=== PATIENT | female | born 1960 | race Caucasian/White ===

== ENCOUNTER → 2017-07-27 15:23 | Outpatient (CLI) | payer OTHER, SELFPAY ==
--- NOTE | 2017-07-27 | DI.MG.S_ITS ---
BILATERAL DIGITAL SCREENING MAMMOGRAM 3D/2D WITH CAD: 07/27/2017 CLINICAL: Routine screening. Comparison is made to exams dated: 07/21/2016 mammogram, 07/21/2015 mammogram, and 07/17/2014 mammogram - [facility]. The tissue of both breasts is heterogeneously dense. This may lower the sensitivity of mammography. Current study was also evaluated with a Computer Aided Detection (CAD) system. No significant masses, calcifications, or other findings are seen in either breast. There has been no significant interval change. IMPRESSION: NEGATIVE There is no mammographic evidence of malignancy. A 1 year screening mammogram is recommended. This exam was interpreted at Station ID: [id number]. NOTE: For mammograms, a report in lay terms will be sent to the patient. Approximately 15% of breast malignancies will not be visualized mammographically. In the management of a palpable breast mass, a negative mammogram must not discourage biopsy of a clinically suspicious lesion. Electronically Signed By: Adolfo hernandez/tommie:07/27/2017 15:49:57 letter sent: Normal Exam ACR BI-RADS Category 1: Negative 3341F
== END ==
PROVIDERS: PCP Physician Assistant; Visit Provider Physician Assistant
DX: Z12.31 Encounter for screening mammogram for malignant neoplasm of breast (principal)
CPT/HCPCS: 77063; 77067

== ENCOUNTER → 2018-01-16 09:56 | Outpatient (CLI) | payer OTHER, SELFPAY ==
[2018-01-16 10:50] LABS: Cholesterol 190 mg/dL (140-199); HDL Cholesterol 63 mg/dL (40-60); LDL Cholesterol Calculated 111 mg/dL (<100); Triglycerides 80 mg/dL (35-150)
== END ==
PROVIDERS: PCP Physician Assistant; Visit Provider Physician Assistant
DX: I73.00 Raynaud's syndrome without gangrene (principal); R00.1 Bradycardia, unspecified; Z82.49 Family history of ischemic heart disease and other diseases of the circulatory system
CPT/HCPCS: 36415; 80061

== ENCOUNTER → 2018-08-13 14:00 | Outpatient (CLI) | payer OTHER, SELFPAY ==
--- NOTE | 2018-08-13 | DI.MG.S_ITS ---
BILATERAL DIGITAL SCREENING MAMMOGRAM 3D/2D WITH CAD: 08/13/2018 CLINICAL: Routine screening. Comparison is made to exams dated: 07/27/2017 mammogram, 07/21/2016 mammogram, and 07/21/2015 mammogram - [facility]. The tissue of both breasts is heterogeneously dense. This may lower the sensitivity of mammography. Current study was also evaluated with a Computer Aided Detection (CAD) system. No significant masses, calcifications, or other findings are seen in either breast. There has been no significant interval change. IMPRESSION: NEGATIVE There is no mammographic evidence of malignancy. A 1 year screening mammogram is recommended. This exam was interpreted at Station ID: [id number]. NOTE: For mammograms, a report in lay terms will be sent to the patient. Approximately 15% of breast malignancies will not be visualized mammographically. In the management of a palpable breast mass, a negative mammogram must not discourage biopsy of a clinically suspicious lesion. Electronically Signed By: Olaf disla/tommie:08/13/2018 16:40:21 letter sent: Normal Exam ACR BI-RADS Category 1: Negative 3341F
== END ==
PROVIDERS: PCP Physician Assistant; Visit Provider Physician Assistant
DX: Z12.31 Encounter for screening mammogram for malignant neoplasm of breast (principal)
CPT/HCPCS: 77063; 77067

== ENCOUNTER → 2019-07-28 10:28 | Outpatient (CLI) | payer OTHER, SELFPAY ==
--- NOTE | 2019-07-28 10:30 | DI.MG.S_ITS ---
BILATERAL DIGITAL SCREENING MAMMOGRAM 3D/2D WITH CAD: 07/28/2019 CLINICAL: Routine screening. Comparison is made to exams dated: 08/13/2018 mammogram, 07/27/2017 mammogram, 07/21/2016 mammogram, 07/21/2015 mammogram, 07/17/2014 mammogram, and 06/14/2011 mammogram - [facility]. The tissue of both breasts is heterogeneously dense. This may lower the sensitivity of mammography. Current study was also evaluated with a Computer Aided Detection (CAD) system. No significant masses, calcifications, or other findings are seen in either breast. There has been no significant interval change. IMPRESSION: NEGATIVE There is no mammographic evidence of malignancy. A 1 year screening mammogram is recommended. This exam was interpreted at Station ID: [id number]. NOTE: For mammograms, a report in lay terms will be sent to the patient. Approximately 15% of breast malignancies will not be visualized mammographically. In the management of a palpable breast mass, a negative mammogram must not discourage biopsy of a clinically suspicious lesion. Electronically Signed By: Darrel moser/tommie:07/28/2019 11:06:02 letter sent: Normal Exam ACR BI-RADS Category 1: Negative 3341F
== END ==
PROVIDERS: PCP Nurse Practitioner Family; Referring Provider Nurse Practitioner Family; Visit Provider Nurse Practitioner Family
DX: Z12.31 Encounter for screening mammogram for malignant neoplasm of breast (principal)
CPT/HCPCS: 77063; 77067

== ENCOUNTER 2019-10-12 09:33 | Emergency (ER) | payer OTHER, SELFPAY ==
[2019-10-12 09:46] VITALS: BP 124/59; PULSE 57; O2SAT 98
[2019-10-12 09:47] VITALS: BP 124/59; PULSE 58; RESP 16; TEMP 36.9; O2SAT 97; BMI 26.6
--- NOTE | 2019-10-12 09:54 | DI.CT.S_ITS ---
PROCEDURE: CT ABDOMEN PELVIS W CON INDICATIONS: ab fullness ongoing TECHNIQUE: After the administration of intravenous contrast, 5 mm thick sections acquired from the diaphragm to the symphysis. 5 mm coronal and sagittal reformats were acquired. For radiation dose reduction, the following was used: automated exposure control, adjustment of mA and/or kV according to patient size. COMPARISON: None. FINDINGS: Image quality: Excellent. ABDOMEN: Lung bases: Lung bases are clear. Heart size is normal. Solid organs: Liver is normal in size and enhancement. The left lobe of the liver is seen projecting to the left side and goes superior to the spleen. Gallbladder wall is not thickened. Biliary system is non dilated. Pancreas enhances normally. Spleen is normal in size and enhancement. No adrenal nodules. Kidneys demonstrate normal size and enhancement, without hydronephrosis. Peritoneum and bowel: There is generalized mild thickening of the colonic wall, with surrounding inflammatory change, particularly involving the cecum and the ascending colon. No dilated loops of small bowel are seen. No free air or significant free fluid can be seen. Nodes and vessels: No retroperitoneal or mesenteric adenopathy by size criteria. Aorta and inferior vena cava are normal in size. Miscellaneous: No ventral hernias. PELVIS: Genitourinary: Bladder wall thickness is normal. Presumed prior hysterectomy. No adnexal masses are seen. Miscellaneous: No inguinal hernias or adenopathy. Bones: No suspicious bony lesions. No vertebral body compression fractures. Mild dextroconvex scoliotic curvature is seen. Age-appropriate bony degenerative changes are seen, which are worst at L5-S1. IMPRESSION: Generalized colitis, particularly proximally. Please correlate with potential infectious and inflammatory causes of colitis. Ischemia is possible, yet considered to be less likely. No findings of perforation or abscess are seen. Incidental note is made of: Elongated left lobe of the liver Dextroconvex scoliotic curvature Hysterectomy Focal L5-S1 degenerative change Dictated by: Helio Caldwell M.D. on 10/12/2019 at 9:40 Approved by: Helio Caldwell M.D. on 10/12/2019 at 9:44
[2019-10-12 09:55] LABS: Add Manual Diff / Slide Review NO; Basophils Absolute Auto 100 /uL (0-100); Eosinophils Absolute Auto 100 /uL (0-450); Eosinophils Percent Auto 1.6 % (2-4); Hematocrit 40.7 % (36-46); Hemoglobin 13.6 g/dL (12.0-16.0); Lymphocytes Absolute Auto 1500 /uL (1100-4500); Lymphocytes Percent Auto 27.3 % (25-40); Mean Corpuscular HGB Conc 33.4 % (30-36); Mean Corpuscular Hemoglobin 29.9 PG (26-34); Mean Corpuscular Volume 89.6 fL (80-100); Monocytes Absolute Auto 400 /uL (0-900); Monocytes Percent Auto 6.4 % (3-14); Neutrophils Absolute Auto 3600 /uL (1500-7000); Neutrophils Percent Auto 63.7 % (50-75); Platelet Count 221 X10^3/uL (150-400); Red Blood Cell Count 4.54 X10^6/uL (4.0-5.2); Red Cell Distribution Width 12.9 % (11.6-14.8); White Blood Cell Count 5.6 X10^3/uL (4.5-11.0)
--- NOTE | 2019-10-12 09:56 | ED.ABDPAIN ---
HPI - Abdominal Pain General Chief Complaint: Abdominal Pain Stated Complaint: discomfort in belly, sent by [facility] Time Seen by Provider: 10/12/19 09:47 Source: patient Mode of arrival: Ambulatory Limitations: no limitations History of Present Illness HPI narrative: Patient is a 58-year-old female who presents with the abdominal discomfort ongoing for about the past 10 days. She states that she feels that her abdomen is full and that her pants are fitting differently. She feels distant aching discomfort diffusely. She has a decrease in appetite she denies any nausea or vomiting. She states that her bowel movements are normal. However pants that fit 2 weeks ago are now just fitting differently and she has not been eating much. MD complaint: abdominal pain Onset (ago): day(s) () Pain Consistency: intermittent Location: diffuse Severity: mild Quality: cramping and fullness Radiation: none Migration to: no migration Relieving factors: nothing Exacerbating factors: nothing Related Data Home Medications Medication Instructions Recorded Confirmed [MULTIVITAMIN] 1 tab PO QDAY #0 08/05/10 09/09/18 [VITAMIN C] 500 mg PO QDAY #0 08/05/10 09/09/18 [VITAMIN D] 1 tab PO QDAY #0 08/21/16 09/09/18 Previous Rx's Medication Instructions Recorded EPINEPHRINE (ADRENACLICK) 0.3 mg SUBCUT ONCE #2 ea 09/04/17 varicella-zoster [id number] (PF) 50 50 mcg IM ONCE #1 each 09/09/18 mcg/0.5 mL IM susp, kit bupropion HCl 100 mg tablet,12 hr 100 mg PO Q DAY #90 tab 10/01/18 sustained-release sertraline 50 mg tablet 50 mg PO Q DAY #90 tab 10/01/18 ciprofloxacin HCl [Cipro] 500 mg PO BID #14 tab 10/12/19 metronidazole [Flagyl] 500 mg PO Q8H #21 tab 10/12/19 Allergies Allergy/AdvReac Type Severity Reaction Status Date / Time Penicillins [PENICILLINS] Allergy Severe rash Unverified 09/09/18 11:10 venom-wasp [WASP VENOM] Allergy Severe FACIAL Unverified 09/09/18 11:10 SWELLING & ANAPHYLACTIC SHOCK codeine [CODEINE] AdvReac Severe n/v Unverified 09/09/18 11:10 Sulfa (Sulfonamide AdvReac Severe passed out Unverified 09/09/18 11:10 Antibiotics) due to low [SULFA (SULFONAMIDE bp ANTIBIOTICS)] Review of Systems Review of Systems Narrative: GENERAL: Denies chills, fatigue, malaise, fever, sweats, travel HEENT: Denies sinus pain, ear pain, sore throat, difficulty swallowing, neck pain RESPIRATORY: Denies dyspnea, cough, wheezing, hemoptysis, sputum. CARDIOVASCULAR: Denies chest pain, palpitations, orthopnea, edema GASTROINTESTINAL: See HPI : Denies dysuria, frequency, incontinence, hematuria, urinary retention, flank pain. MUSCULOSKELETAL: Denies weakness, joint pain, or bony pain SKIN: No rash, no erythema, no pruritus NEUROLOGIC: Denies weakness, dizziness, headache, numbness, change in speech, confusion PSYCHIATRIC: No concerning psychosocial issues. 12 point review of systems is negative except for those stated above and HPI Patient History Medical History Allergic rhinitis (Chronic Unknown) Depression (Chronic Unknown) Low back pain (Chronic ~1999) Raynaud disease (Chronic Unknown) Surgical History Hx of sinus surgery (Resolved Unknown) Status post delivery Status post hysterectomy with oophorectomy Family History Father Hypertension Mother Diabetes mellitus Grandfather No problems noted. Social History Smoking Status: Former smoker Tobacco: How many years used: 4 second hand exposure: No alcohol intake: current (a glass of wine a couple of times a year.) substance use type: does not use Smoking Status: Former smoker Substance Use Type: does not use Exam Initial Vital Signs Initial Vital Signs: Vital Signs Pulse Rate 57 L 10/12/19 09:46 Blood Pressure 124/59 L 10/12/19 09:46 Pulse Oximetry 98 10/12/19 09:46 GENERAL: Well-appearing, well-nourished and in no acute distress. HEENT: Head atraumatic,EOMI, pupils reactive, face symmetric, moist mucous membranes CARDIOVASCULAR: Regular rate and rhythm without murmurs, rubs or gallops. RESPIRATORY: Breath sounds equal bilaterally, no wheezes rales or rhonchi. ABDOMEN: Soft, mild diffuse tenderness no localization no guarding no rebound negative Weathers sign : No CVA tenderness EXTREMITIES: Normal range of motion, no clubbing or edema. Neurovascularly intact NEUROLOGICAL: Alert and oriented x4.Normal gait and speech. SKIN: Warm, dry, no laceration, no petechiae, no rashes or lesions. Course Orders Ordered: ED Orders 10/12/19 09:45 Complete Blood Count AUTO DIFF Stat Comprehensive Metabolic Panel Stat Lipase Stat Partial Thromboplastin Time Stat Prothrombin Time INR Stat 10/12/19 09:54 CT abdomen pelvis w con Stat Vital Signs Vital signs: Vital Signs - 8 hr 10/12/19 09:46 10/12/19 09:47 10/12/19 10:00 Temperature 98.5 F Pulse Rate 57 L 58 L 54 L Respiratory Rate 16 7 L Blood Pressure 124/59 L 124/59 L 114/57 L Pulse Oximetry 98 97 10/12/19 11:02 Temperature Pulse Rate 59 L Respiratory Rate 16 Blood Pressure 114/57 L Pulse Oximetry 97 MDM - Abdominal Pain Lab Data Attestation: I reviewed the patient's lab results. Result diagrams: 10/12/19 09:45 10/12/19 09:45 Labs: Lab Results 10/12/19 10/12/19 10/12/19 Range/Units 09:45 09:45 09:45 WBC 5.6 (4.5-11.0) X10^3/uL RBC 4.54 (4.0-5.2) X10^6/uL Hgb 13.6 (12.0-16.0) g/dL Hct 40.7 (36-46) % MCV 89.6 (80-100) fL MCH 29.9 (26-34) PG MCHC 33.4 (30-36) % RDW 12.9 (11.6-14.8) % Plt Count 221 (150-400) X10^3/uL Neut % (Auto) 63.7 (50-75) % Lymph % (Auto) 27.3 (25-40) % Meeker % (Auto) 6.4 (3-14) % Eos % (Auto) 1.6 L (2-4) % Baso % (Auto) 1.0 (0-2) % Neut # (Auto) 3600 (8591-7983) /uL Lymph # (Auto) 1500 (7007-1348) /uL Meeker # (Auto) 400 (0-900) /uL Eos # (Auto) 100 (0-450) /uL Baso # (Auto) 100 (0-100) /uL PT 11.4 (10.1-12.7) SECONDS INR 1.0 (0.9-1.3) APTT 35 (26.4-36.2) SECONDS Sodium 137 (137-145) mmol/L Potassium 3.8 (3.4-5.1) mmol/L Chloride 104 (98-107) mmol/L Carbon Dioxide 30 (22-32) mmol/L BUN 18 H (7-17) mg/dL Creatinine 0.97 (0.52-1.04) mg/dL Estimated GFR 58.6 L (>60) mL/min BUN/Creatinine Ratio 18.6 (6-22) Glucose 92 (80-110) mg/dL Calcium 9.4 (8.4-10.2) mg/dL Total Bilirubin 1.6 H (0.2-1.3) mg/dL AST 36 (14-36) IU/L ALT 19 (<35) IU/L Alkaline Phosphatase 66 (38-126) U/L Total Protein 7.2 (6.3-8.2) g/dL Albumin 4.1 (3.5-5.0) g/dL Globulin 3.1 (1.7-4.1) g/dL Albumin/Globulin Ratio 1.3 (1.0-2.8) Lipase 43 (23-300) U/L Imaging Data CT scan - abdomen/pelvis: Radiologist's Impression: PROCEDURE: CT ABDOMEN PELVIS W CON INDICATIONS: ab fullness ongoing TECHNIQUE: After the administration of intravenous contrast, 5 mm thick sections acquired from the diaphragm to the symphysis. 5 mm coronal and sagittal reformats were acquired. For radiation dose reduction, the following was used: automated exposure control, adjustment of mA and/or kV according to patient size. COMPARISON: None. FINDINGS: Image quality: Excellent. ABDOMEN: Lung bases: Lung bases are clear. Heart size is normal. Solid organs: Liver is normal in size and enhancement. The left lobe of the liver is seen projecting to the left side and goes superior to the spleen. Gallbladder wall is not thickened. Biliary system is non dilated. Pancreas enhances normally. Spleen is normal in size and enhancement. No adrenal nodules. Kidneys demonstrate normal size and enhancement, without hydronephrosis. Peritoneum and bowel: There is generalized mild thickening of the colonic wall, with surrounding inflammatory change, particularly involving the cecum and the ascending colon. No dilated loops of small bowel are seen. No free air or significant free fluid can be seen. Nodes and vessels: No retroperitoneal or mesenteric adenopathy by size criteria. Aorta and inferior vena cava are normal in size. Miscellaneous: No ventral hernias. PELVIS: Genitourinary: Bladder wall thickness is normal. Presumed prior hysterectomy. No adnexal masses are seen. Miscellaneous: No inguinal hernias or adenopathy. Bones: No suspicious bony lesions. No vertebral body compression fractures. Mild dextroconvex scoliotic curvature is seen. Age-appropriate bony degenerative changes are seen, which are worst at L5-S1. IMPRESSION: Generalized colitis, particularly proximally. Please correlate with potential infectious and inflammatory causes of colitis. Ischemia is possible, yet considered to be less likely. No findings of perforation or abscess are seen. Incidental note is made of: Elongated left lobe of the liver Dextroconvex scoliotic curvature Hysterectomy Focal L5-S1 degenerative change Dictated by: Helio Caldwell M.D. on 10/12/2019 at 9:40 Approved by: Helio Caldwell M.D. on 10/12/2019 at 9:44 MDM Narrative Medical decision making narrative: The patient does not have leukocytosis or fever but CT does show colitis. Symptoms have been ongoing for the last 10 days will start antibiotics to see if it improves her symptoms Discharge Plan Departure Patient Disposition: Home Clinical Impression: Colitis Discharge Date/Time: 10/12/19 11:02 Instructions: DI for Colitis Activity Restrictions/Additional Instructions: *You have been diagnosed with colitis *What to do: Blood work is overall reassuring however I do recommend antibiotics for infection in your intestine. Try to stay hydrated and drink fluids if you feel like eating you may advance her diet as tolerated *Continue to take medications as directed-->SENT TO [facility] Cipro 500 mg twice a day for 7 day Flagyl 500 mg 3 times a day for 7 days *Follow up with your primary care provider in 2-3 days *Return to ER if you should have increased pain fever or any new, worsening or concerning symptoms Prescriptions: New ciprofloxacin HCl [Cipro] 500 mg tablet 500 mg PO BID Qty: 14 RF: 0 metronidazole [Flagyl] 500 mg tablet 500 mg PO Q8H Qty: 21 RF: 0 No Action EPINEPHRINE (ADRENACLICK) 0.3 mg SUBCUT ONCE Qty: 2 RF: 1 [MULTIVITAMIN] 1 tab PO QDAY Qty: 0 RF: 0 [VITAMIN C] 500 mg PO QDAY Qty: 0 RF: 0 [VITAMIN D] 1 tab PO QDAY Qty: 0 RF: 0 sertraline [Zoloft] 50 mg tablet 50 mg PO Q DAY Qty: 90 RF: 3 bupropion HCl [Wellbutrin SR] 100 mg tablet sustained-release 12 hr 100 mg PO Q DAY Qty: 90 RF: 3 Shingrix (PF) 50 mcg/0.5 mL suspension for reconstitution 50 mcg IM ONCE Qty: 1 RF: 1 Referrals: Shaunna Paula ARNP [Primary Care Provider] -
[2019-10-12 10:00] VITALS: BP 114/57; PULSE 54; RESP 7
[2019-10-12 10:03] LABS: Prothrombin Time 11.4 SECONDS (10.1-12.7)
[2019-10-12 10:05] LABS: PTT Partial Thromboplastin Tim 35 SECONDS (26.4-36.2)
[2019-10-12 10:07] LABS: Alanine Aminotransferase 19 IU/L (<35); Albumin 4.1 g/dL (3.5-5.0); Albumin Globulin Ratio 1.3 (1.0-2.8); Alkaline Phosphatase 66 U/L (38-126); Aspartate Aminotransferase 36 IU/L (14-36); BUN Creatinine Ratio 18.6 (6-22); Bilirubin Total 1.6 mg/dL (0.2-1.3); Blood Urea Nitrogen 18 mg/dL (7-17); Calcium 9.4 mg/dL (8.4-10.2); Carbon Dioxide 30 mmol/L (22-32); Chloride 104 mmol/L (98-107); Estimated Glomerular Filt Rate 58.6 mL/min (>60); Globulin 3.1 g/dL (1.7-4.1); Glucose 92 mg/dL (80-110); HEMOLYSIS 17 (0-50); Lipase 43 U/L (23-300); Potassium 3.8 mmol/L (3.4-5.1); Sodium 137 mmol/L (137-145); Total Protein 7.2 g/dL (6.3-8.2)
[2019-10-12 11:02] VITALS: BP 114/57; PULSE 59; RESP 16; O2SAT 97
== END 2019-10-12 11:02 | disposition home or self-care (01) ==
PROVIDERS: Emergency Provider Emergency Medicine; PCP Nurse Practitioner Family
DX: K52.9 Noninfective gastroenteritis and colitis, unspecified (principal)
CPT/HCPCS: 36415; 74177; 80053; 83690; 85025; 85610; 85730; 99283; 99284; Q9967

== ENCOUNTER → 2020-02-23 09:12 | Outpatient (CLI) | payer OTHER, SELFPAY ==
[2020-02-23 11:34] LABS: COVID19 -Nasal RAPID Negative (Negative)
== END ==
PROVIDERS: PCP Nurse Practitioner Family; Visit Provider Specialist
DX: Z01.812 Encounter for preprocedural laboratory examination (principal); Z20.828 Contact with and (suspected) exposure to other viral communicable diseases
CPT/HCPCS: 87635; C9803

== ENCOUNTER 2020-02-24 07:59 | Day surgery (SDC) | payer OTHER, SELFPAY ==
[2020-02-24] VITALS (7 sets, daily range): BP systolic 110–116; BP diastolic 54–86; PULSE 61–71; RESP 8–18; TEMP 36.7–37.1; O2SAT 94–100; BMI 27.3
[2020-02-24] MEDS: LACTATED RINGERS 1,000 ML 200 ML IV (08:31)
--- NOTE | 2020-02-24 10:25 | PM.HP.1 ---
History of Present Illness History of Present Illness Date Patient Seen: 02/24/20 Time Patient Seen: 10:20 Chief complaint: SD Narrative: Patient here for screening examination. Last exam 11 years ago. No history polyps or of colon cancer in the family. She does have a history of diverticulitis several months ago. Patient History Medical History Allergic rhinitis (Unknown) Depression (Unknown) Diverticulosis (08/2019) Low back pain (~1999) Raynaud disease (Unknown) Surgical History Hx of sinus surgery (Unknown) Status post delivery Status post hysterectomy with oophorectomy Family & Social History Family History Father Hypertension Mother Diabetes mellitus Grandfather No problems noted. Social History: household members family Tobacco & Substance use: Smoking Status Former smoker alcohol intake current alcohol intake frequency holiday/special occasion Substance Use Type does not use Meds Home Medications and Allergies Home Medications Medication Instructions Recorded Confirmed Type [MULTIVITAMIN] 1 tab PO QDAY #0 08/05/10 02/24/20 History [VITAMIN C] 500 mg PO QDAY #0 08/05/10 02/24/20 History [VITAMIN D] 1 tab PO QDAY #0 08/21/16 02/24/20 History EPINEPHRINE (ADRENACLICK) 0.3 mg SUBCUT ONCE #2 ea 09/04/17 01/06/20 Rx bupropion HCl 100 mg tablet,12 hr 100 mg PO Q DAY #30 tab 11/28/19 02/24/20 Rx sustained-release sertraline 50 mg tablet 50 mg PO Q DAY #30 tab 11/28/19 02/24/20 Rx Allergies Allergy/AdvReac Type Severity Reaction Status Date / Time Penicillins [PENICILLINS] Allergy Severe rash Verified 02/24/20 08:31 venom-wasp [WASP VENOM] Allergy Severe FACIAL Verified 02/24/20 08:31 SWELLING & ANAPHYLACTIC SHOCK codeine [CODEINE] AdvReac Severe n/v Verified 02/24/20 08:31 Sulfa (Sulfonamide AdvReac Severe passed out Verified 02/24/20 08:16 Antibiotics) due to low [SULFA (SULFONAMIDE bp ANTIBIOTICS)] Review of Systems Review of Systems Narrative: History of asthma years ago. No longer treated for it. ROS: Yes All systems reviewed with the patient and are negative except as otherwise documented Exam Vital Signs (past 8 hours): - 02/24/20 08:19 Temperature 98.3 F Pulse Rate 61 Respiratory Rate 16 Blood Pressure 110/63 Pulse Oximetry 100 Oxygen Delivery Method Room Air Narrative Exam Narrative: Pleasant cooperative patient no apparent distress. Lungs are clear to auscultation. No rales or rhonchi. Heart regular rate and rhythm no murmur gallop. Abdomen is soft nontender without mass. No obvious hernias. Patient is alert and oriented x3. Assessment & Plan Assessment & Plan narrative: The patient for a screening colonoscopy. I have discussed the procedure with them. Risks of bleeding, perforation which would necessitate major operation, failure to find remove all lesions, the potential tattoo were all discussed. All questions were answered. They wished to proceed.
--- NOTE | 2020-02-24 10:27 | PM.PREOP ---
Pre-operative Note COVID-19 COVID-19 status: Negative Result date/Date tested (Pos, Neg/Pending): 02/23/20 Interval Note History & Physical reviewed/Exam performed by Physician: Yes Changes to H&P: No ASA Class (for procedural sedation): I
[2020-02-24] MEDS: ONDANSETRON 4 MG/2 ML INJ IV (10:30)
[2020-02-24] MEDS: fentaNYL 250 MCG/5 ML INJ IV (10:50)
[2020-02-24] MEDS: MIDAZOLAM 5 MG/5 ML VIAL IV (10:50)
--- NOTE | 2020-02-24 11:17 | PM.OP.ENDO ---
Operative Date/Time/Diagnoses Date of procedure: 02/24/20 Time of procedure: 11:18 Pre-op diagnosis: Screening exam. Post-op diagnosis: same Procedure & Clinicians Study performed: Attempted colonoscopy. Abandoned in the area of the hepatic flexure. Same procedure as scheduled: Yes Indications: Screening. Last exam 11 years ago. Surgeon: Inocencio Bynum Procedure Notes SCOAP/Timeout: Performed Procedure in detail: The patient was placed in the left lateral decubitus position and underwent IV sedation directed by the surgeon consisting of fentanyl and Versed. Digital exam was unremarkable. The scope was inserted and advanced through the rectum into the sigmoid, descending, and the transverse colon. To get this far was quite difficult. The patient had to be repositioned pressure applied but still I could not get beyond what appeared to be the hepatic flexure region. The patient had a very tortuous colon. I did not see diverticuli in her sigmoid colon despite her history of being treated for diverticulitis. The scope was gradually brought out. No Polyps were found. The scope ultimately was retroflexed in the rectum. The appearance was normal. The scope was removed and the patient tolerated the procedure well. The prep was very good. Scope withdrawal time: Not applicable Sedation minutes: 32 Specimen(s): none sent Complications: none Post-procedure Recommendations: Other recommendation (Barium enema to evaluate the remainder of her colon.) Follow up: as needed (After barium enema) Disposition: PACU
--- NOTE | 2020-02-24 11:45 | SUR.PHASEII ---
All discharge paperwork provided to patient . Advised patient that due to incompletion of colonoscopy, patient would need to have barium enema scheduled by Dr Bynum's office.
== END 2020-02-24 11:54 | disposition home or self-care (01) ==
PROVIDERS: PCP Nurse Practitioner Family; Referring Provider Nurse Practitioner Family; Visit Provider Specialist
PROC: 0DJD8ZZ Inspection of Lower Intestinal Tract, Via Natural or Artificial Opening Endoscopic (ICD-10-PCS; CPT 45378; principal; 2020-02-24 09:15)
DX: Z12.11 Encounter for screening for malignant neoplasm of colon (principal); Z87.19 Personal history of other diseases of the digestive system; Z53.09 Procedure and treatment not carried out because of other contraindication
CPT/HCPCS: 45378; 99152; 99153; J2250; J2405; J3010

== ENCOUNTER 2020-02-25 10:30 | Emergency (ER) | payer OTHER, SELFPAY ==
[2020-02-25] VITALS (9 sets, daily range): BP systolic 122–137; BP diastolic 59–65; PULSE 60–68; RESP 15–16; TEMP 37.2; O2SAT 97–100; BMI 28.1
--- NOTE | 2020-02-25 10:36 | DI.CT.S_ITS ---
PROCEDURE: CT HEAD/BRAIN WO CON INDICATIONS: severe headache with nausea TECHNIQUE: Noncontrast 4.5 mm thick angled axial sections acquired from the foramen magnum to the vertex, with coronal and sagittal reformats. For radiation dose reduction, the following was used: automated exposure control, adjustment of mA and/or kV according to patient size. COMPARISON: None. FINDINGS: Image quality: Excellent. CSF spaces: Basal cisterns are patent. No extra-axial fluid collections. Ventricles are normal in size and shape. Note is made of empty sella. Brain: No midline shift. No intracranial masses or hemorrhage. Jason-white matter interface is normal. There is calcification in the pineal gland area. Skull and face: Calvarium and visualized facial bones are intact, without suspicious lesions. Sinuses: Visualized sinuses and mastoids are clear. IMPRESSION: 1. No acute intracranial abnormalities. 2. Calcification in the pineal gland area, which may be age related change but a calcified mass cannot be excluded. If clinically indicated, follow-up MRI may be helpful. 3. Empty sella, probably a normal variant. Dictated by: Melvina Maldonado M.D. on 02/25/2020 at 11:18 Approved by: Melvina Maldonado M.D. on 02/25/2020 at 11:33
--- NOTE | 2020-02-25 10:38 | ED.NAVMDI ---
HPI - Nausea/Vomiting/Diarrhea General Chief complaint: Nausea/Vomiting/Diarrhea Stated complaint: Vertigo/Vomiting Time Seen by Provider: 02/25/20 10:36 Source: patient and EMS Mode of arrival: EMS Limitations: no limitations History of Present Illness HPI Narrative: Patient is a 59-year-old female who had a colonoscopy yesterday as a routine. Presenting today with headache and nausea. She is not sure what came 1st but she is extremely nauseous and has a severe headache cannot stop throwing up. She denies any dizziness lightheadedness chest pain weakness numbness or tingling. She says she does not normally get headaches. She is not on any anti-platelet or anticoagulation medication MD complaint: nausea and vomiting Related Data Home Medications Medication Instructions Recorded Confirmed [MULTIVITAMIN] 1 tab PO QDAY #0 08/05/10 02/24/20 [VITAMIN C] 500 mg PO QDAY #0 08/05/10 02/24/20 [VITAMIN D] 1 tab PO QDAY #0 08/21/16 02/24/20 Previous Rx's Medication Instructions Recorded EPINEPHRINE (ADRENACLICK) 0.3 mg SUBCUT ONCE #2 ea 09/04/17 bupropion HCl 100 mg tablet,12 hr 100 mg PO Q DAY #30 tab 11/28/19 sustained-release sertraline 50 mg tablet 50 mg PO Q DAY #30 tab 11/28/19 ondansetron 4 mg PO Q8H PRN #10 tab 02/25/20 Allergies Allergy/AdvReac Type Severity Reaction Status Date / Time Penicillins [PENICILLINS] Allergy Severe rash Verified 02/25/20 10:37 venom-wasp [WASP VENOM] Allergy Severe FACIAL Verified 02/25/20 10:37 SWELLING & ANAPHYLACTIC SHOCK codeine [CODEINE] AdvReac Severe n/v Verified 02/25/20 10:37 Sulfa (Sulfonamide AdvReac Severe passed out Verified 02/25/20 10:37 Antibiotics) due to low [SULFA (SULFONAMIDE bp ANTIBIOTICS)] Review of Systems Review of Systems ROS Unobtainable: All systems reviewed & are unremarkable except as noted in HPI and below Constitutional Constitutional: Denies chills, Denies fever(s), Reports headache(s), Denies lethargy and Denies weakness ENT Ears, Nose, Mouth, and Throat: Reports headache(s) Cardiovascular Cardiovascular: Denies chest pain, Denies irregular heart rhythm, Denies lightheadedness, Denies palpitations, Denies dyspnea, Denies dyspnea on exertion and Denies orthopnea Respiratory Respiratory: Denies cough, Denies dyspnea, Denies dyspnea on exertion and Denies wheezing Gastrointestinal Gastrointestinal: Denies abdominal pain, Denies change in bowel habits, Denies diarrhea, Reports nausea and Reports vomiting Musculoskeletal Musculoskeletal: Denies back pain and Denies deformity Integumentary/Breasts Skin/Breast: Denies pruritus, Denies erythema, Denies rash and Denies wounds Neurologic Neurologic: Reports headache(s) and Denies weakness Endocrine Endocrine: Denies palpitations Allergic/Immunologic Allergic/Immunologic: Denies wheezing Patient History Medical History Allergic rhinitis (Unknown) Depression (Unknown) Diverticulosis (08/2019) Low back pain (~1999) Raynaud disease (Unknown) Surgical History Hx of sinus surgery (Unknown) Status post delivery Status post hysterectomy with oophorectomy Family History Father Hypertension Mother Diabetes mellitus Grandfather No problems noted. Social History household members: family Smoking Status: Former smoker Tobacco: How many years used: 4 second hand exposure: No alcohol intake: current substance use type: does not use Smoking Status: Former smoker alcohol intake frequency: holidays/special occasions only Substance Use Type: does not use Exam Initial Vital Signs Initial Vital Signs: Vital Signs Temperature 98.9 F 02/25/20 10:34 Pulse Rate 67 02/25/20 10:34 Respiratory Rate 15 02/25/20 10:34 Blood Pressure 128/64 02/25/20 10:34 Pulse Oximetry 99 02/25/20 10:34 GENERAL: Well-appearing, well-nourished and in no acute distress. HEENT: Head atraumatic,EOMI, pupils reactive, face symmetric, moist mucous membranes CARDIOVASCULAR: Regular rate and rhythm without murmurs, rubs or gallops. RESPIRATORY: Breath sounds equal bilaterally, no wheezes rales or rhonchi. ABDOMEN: Soft, nontender. Normoactive bowel sounds all 4 quadrants. No guarding or rebound. EXTREMITIES: Normal range of motion, no clubbing or edema. Neurovascularly intact NEUROLOGICAL: Alert and oriented x4.Normal gait and speech. Cranial nerves II through XII grossly intact. Good cqcqfp-[id number], good [id number], strength equal bilaterally, no dysarthria or aphasia, sensation in tact to soft touch bilaterally, no visual changes, no facial droop SKIN: Warm, dry, no laceration, no petechiae, no rashes or lesions. Scores NIH Stroke Scale Level of Conciousness: Alert, keenly responsive Ask month/age: Answers both questions correctly. Open/close eyes, close hand: Performs both tasks correctly Best gaze horizontal: Normal Visual erickson: No visual loss Facial palsy: Normal symetrical movement Left arm drift: No drift for full 10 sec Right arm drift: No drift for full 10 sec Left leg drift: No drift for full 5 sec Right leg drift: No drift for full 5 sec Limb ataxia: Absent Sensory on face/arms/legs: Normal, no sensory loss Best language: No aphasia, normal Dysarthria: Normal Extinction or inattention: No abnormality Total NIH Stroke scale score: 0 Course Orders Ordered: ED Orders 02/25/20 10:30 Complete Blood Count AUTO DIFF Stat Comprehensive Metabolic Panel Stat Lipase Stat Partial Thromboplastin Time Stat Prothrombin Time INR Stat Troponin & CK Cardiac Panel Stat 02/25/20 10:35 EKG-12 Lead Stat 02/25/20 10:36 CT head/brain wo con Stat Discontinued Medications Sodium Chloride (Normal Saline 0.9%) 1,000 mls @ 1,000 mls/hr IV BOLUS ONE Stop: 02/25/20 11:35 Last Infusion: 02/25/20 13:07 Dose: 0 mls/hr Documented by: Admin: 02/25/20 11:08 Dose: 1,000 mls/hr Documented by: JAVI Morphine Sulfate (Morphine 2 Mg/Ml Inj) 2 mg IV NOW ONE Stop: 02/25/20 10:37 Last Admin: 02/25/20 11:08 Dose: 2 mg Documented by: JAVI Vital Signs Vital signs: Vital Signs - 8 hr 02/25/20 10:34 02/25/20 10:35 02/25/20 11:00 Temperature 98.9 F Pulse Rate 67 63 65 Respiratory Rate 15 Blood Pressure 128/64 Pulse Oximetry 99 100 99 02/25/20 11:17 02/25/20 11:30 02/25/20 11:51 Temperature Pulse Rate 68 Respiratory Rate 16 Blood Pressure 137/65 125/64 Pulse Oximetry 100 02/25/20 12:00 02/25/20 12:30 02/25/20 13:00 Temperature Pulse Rate 67 64 60 Respiratory Rate Blood Pressure 123/62 130/61 122/59 L Pulse Oximetry 100 97 99 MDM - Nausea/Vomiting/Diarrhea Lab Data Attestation: I reviewed the patient's lab results. Result diagrams: 02/25/20 10:30 02/25/20 10:30 Labs: Lab Results 02/25/20 02/25/20 02/25/20 Range/Units 10:30 10:30 10:30 WBC 7.4 (4.5-11.0) X10^3/uL RBC 4.48 (4.0-5.2) X10^6/uL Hgb 13.4 (12.0-16.0) g/dL Hct 40.4 (36-46) % MCV 90.1 (80-100) fL MCH 30.0 (26-34) PG MCHC 33.3 (30-36) % RDW 12.3 (11.6-14.8) % Plt Count 221 (150-400) X10^3/uL Neut % (Auto) 79.8 H (50-75) % Lymph % (Auto) 15.9 L (25-40) % Webster % (Auto) 3.8 (3-14) % Eos % (Auto) 0.0 L (2-4) % Baso % (Auto) 0.5 (0-2) % Neut # (Auto) 5900 (8430-8811) /uL Lymph # (Auto) 1200 (9119-8415) /uL Webster # (Auto) 300 (0-900) /uL Eos # (Auto) 0 (0-450) /uL Baso # (Auto) 0 (0-100) /uL PT 12.0 (10.1-12.7) SECONDS INR 1.0 (0.9-1.3) APTT 31 (26.4-36.2) SECONDS Sodium 135 L (137-145) mmol/L Potassium 3.8 (3.4-5.1) mmol/L Chloride 103 (98-107) mmol/L Carbon Dioxide 28 (22-32) mmol/L BUN 13 (7-17) mg/dL Creatinine 0.83 (0.52-1.04) mg/dL Estimated GFR > 60.0 (>60) mL/min BUN/Creatinine Ratio 15.7 (6-22) Glucose 118 H (80-110) mg/dL Calcium 9.3 (8.4-10.2) mg/dL Total Bilirubin 1.3 (0.2-1.3) mg/dL AST 35 (14-36) IU/L ALT 25 (<35) IU/L Alkaline Phosphatase 71 (38-126) U/L Total Creatine Kinase 93 (30-135) U/L CK-MB (CK-2) TNP CK-MB (CK-2) Rel Index TNP Troponin I < 0.012 (0.01-0.034) ng/mL Total Protein 7.1 (6.3-8.2) g/dL Albumin 3.9 (3.5-5.0) g/dL Globulin 3.2 (1.7-4.1) g/dL Albumin/Globulin Ratio 1.2 (1.0-2.8) Lipase 45 (23-300) U/L Imaging Data CT scan - head: Radiologist's Impression: PROCEDURE: CT HEAD/BRAIN WO CON INDICATIONS: severe headache with nausea TECHNIQUE: Noncontrast 4.5 mm thick angled axial sections acquired from the foramen magnum to the vertex, with coronal and sagittal reformats. For radiation dose reduction, the following was used: automated exposure control, adjustment of mA and/or kV according to patient size. COMPARISON: None. FINDINGS: Image quality: Excellent. CSF spaces: Basal cisterns are patent. No extra-axial fluid collections. Ventricles are normal in size and shape. Note is made of empty sella. Brain: No midline shift. No intracranial masses or hemorrhage. Jason-white matter interface is normal. There is calcification in the pineal gland area. Skull and face: Calvarium and visualized facial bones are intact, without suspicious lesions. Sinuses: Visualized sinuses and mastoids are clear. IMPRESSION: 1. No acute intracranial abnormalities. 2. Calcification in the pineal gland area, which may be age related change but a calcified mass cannot be excluded. If clinically indicated, follow-up MRI may be helpful. 3. Empty sella, probably a normal variant. Dictated by: Melvina Maldonado M.D. on 02/25/2020 at 11:18 ECG Data Attestation: I personally reviewed and interpreted this ECG as follows: Prior ECG tracings: not available for review Interpretation: Normal sinus rhythm rate 57 p.r. interval [address] changes no T-wave inversions. MDM Narrative Medical decision making narrative: Patient is overall feeling much better after nausea and medication. Head CT does not show any acute intracranial hemorrhage. She has no focal deficits. She is tolerating oral fluids. Her abdomen is re-evaluated and 0remains soft. This time I do not suspect any injury from colonoscopy. Sounds as though it was initially headache and nausea with vomiting. Discharge Plan Departure Patient Disposition: Home Clinical Impression: Headache Instructions: DI for Vomiting -- Adult, DI for Headache Activity Restrictions/Additional Instructions: *You have been diagnosed with headache with vomiting *What to do: Increase fluid intake as tolerated recommend small sips frequently from such as Gatorade or Gatorade like fluid, popsicle Jell-O etc *Continue to take medications as directed Zofran 4 mg every 8 hours as needed for nausea or vomiting Tylenol 650 mg every 4-6 hours if needed for zygf-mh-rrhclggc pain/Motrin 600 mg every 6-8 hours if needed for baik-dg-nguiptps pain *Follow up with your primary care provider in 2-3 days *Return to ER if you should have worsening headache, increasing abdominal pain and persistent vomiting, fever, confusion or any new, worsening or concerning symptoms Prescriptions: New ondansetron 4 mg tablet,disintegrating 4 mg PO Q8H PRN (Reason: nausea and vomiting) Qty: 10 RF: 0 No Action EPINEPHRINE (ADRENACLICK) 0.3 mg SUBCUT ONCE Qty: 2 RF: 1 [MULTIVITAMIN] 1 tab PO QDAY Qty: 0 RF: 0 [VITAMIN C] 500 mg PO QDAY Qty: 0 RF: 0 [VITAMIN D] 1 tab PO QDAY Qty: 0 RF: 0 bupropion HCl [Wellbutrin SR] 100 mg tablet sustained-release 12 hr 100 mg PO Q DAY Qty: 30 RF: 1 sertraline [Zoloft] 50 mg tablet 50 mg PO Q DAY Qty: 30 RF: 1 Referrals: Shaunna Paula ARNP [Primary Care Provider] -
[2020-02-25 10:47] LABS: Add Manual Diff / Slide Review NO; Basophils Absolute Auto 0 /uL (0-100); Basophils Percent Auto 0.5 % (0-2); Eosinophils Absolute Auto 0 /uL (0-450); Hematocrit 40.4 % (36-46); Hemoglobin 13.4 g/dL (12.0-16.0); Lymphocytes Absolute Auto 1200 /uL (1100-4500); Lymphocytes Percent Auto 15.9 % (25-40); Mean Corpuscular HGB Conc 33.3 % (30-36); Mean Corpuscular Volume 90.1 fL (80-100); Monocytes Absolute Auto 300 /uL (0-900); Monocytes Percent Auto 3.8 % (3-14); Neutrophils Absolute Auto 5900 /uL (1500-7000); Neutrophils Percent Auto 79.8 % (50-75); Platelet Count 221 X10^3/uL (150-400); Red Blood Cell Count 4.48 X10^6/uL (4.0-5.2); Red Cell Distribution Width 12.3 % (11.6-14.8); White Blood Cell Count 7.4 X10^3/uL (4.5-11.0)
[2020-02-25 10:50] LABS: PTT Partial Thromboplastin Tim 31 SECONDS (26.4-36.2)
[2020-02-25 11:01] LABS: Alanine Aminotransferase 25 IU/L (<35); Albumin 3.9 g/dL (3.5-5.0); Albumin Globulin Ratio 1.2 (1.0-2.8); Alkaline Phosphatase 71 U/L (38-126); Aspartate Aminotransferase 35 IU/L (14-36); BUN Creatinine Ratio 15.7 (6-22); Bilirubin Total 1.3 mg/dL (0.2-1.3); Blood Urea Nitrogen 13 mg/dL (7-17); Calcium 9.3 mg/dL (8.4-10.2); Carbon Dioxide 28 mmol/L (22-32); Chloride 103 mmol/L (98-107); Creatine Kinase 93 U/L (30-135); Estimated Glomerular Filt Rate > 60.0 mL/min (>60); Globulin 3.2 g/dL (1.7-4.1); Glucose 118 mg/dL (80-110); HEMOLYSIS 18 (0-50); Lipase 45 U/L (23-300); Potassium 3.8 mmol/L (3.4-5.1); Sodium 135 mmol/L (137-145); Total Protein 7.1 g/dL (6.3-8.2)
[2020-02-25] MEDS: MORPHINE 2 MG/ML INJ IV (11:08)
[2020-02-25] MEDS: SODIUM CHLORIDE 0.9% 1,000 ML 1000 ML IV (11:08)
[2020-02-25 11:13] LABS: Troponin I < 0.012 ng/mL (0.01-0.034)
== END 2020-02-25 13:26 | disposition home or self-care (01) ==
PROVIDERS: Emergency Provider Emergency Medicine; PCP Nurse Practitioner Family
DX: R51.9 Headache, unspecified (principal); R11.2 Nausea with vomiting, unspecified
CPT/HCPCS: 70450; 80053; 82550; 83690; 84484; 85025; 85610; 85730; 93005; 96361; 96374; 99284; J2270

== ENCOUNTER → 2020-04-30 08:57 | Outpatient (CLI) | payer OTHER, SELFPAY ==
--- NOTE | 2020-04-30 08:58 | DI.RAD.S_ITS ---
PROCEDURE: XR ABDOMEN 1V INDICATIONS: incomplete colonoscopy TECHNIQUE: One view of the abdomen acquired. COMPARISON: None. FINDINGS: Surgical changes and devices: None. Bowel: Bowel gas pattern is normal. Soft tissues: No suspicious abdominal calcifications. Visualized solid organ contours appear normal in size. This study was initially anticipated as a barium enema, and the study was ordered due to incomplete colonoscopy previously. The patient reports no expected response to bowel preparation for this examination and L3 a.m. When a single bowel movement was achieved. She reports stool content remaining, and for this reason the study was not performed due to likelihood of retained stool including some of which appears present overlying the mid and lower pelvis Bones: No suspicious bony lesions. IMPRESSION: The circumstance was discussed in detail with the patient, regarding need for full bowel preparation. Aim more aggressive bowel preparation or longer bowel preparation is recommended and repeat attempt barium enema is anticipated early in May. Dictated by: Anthony Edwards M.D. on 04/30/2020 at 9:52 Approved by: Anthony Edwards M.D. on 04/30/2020 at 9:55
== END ==
PROVIDERS: PCP Nurse Practitioner Family; Referring Provider Nurse Practitioner Family; Visit Provider Specialist
DX: Z12.11 Encounter for screening for malignant neoplasm of colon (principal)
CPT/HCPCS: 74018

== ENCOUNTER → 2020-05-31 08:44 | Outpatient (CLI) | payer OTHER, SELFPAY ==
--- NOTE | 2020-05-31 08:46 | DI.RAD.S_ITS ---
PROCEDURE: FL BARIUM ENEMA W AIR CONTRAST INDICATIONS: Screening for cancer. Unable to evaluate the proximal part COMPARISON: None. FINDINGS: KUB: Pre-procedural cutter in film demonstrates a normal bowel gas pattern. No suspicious abdominal calcifications. Visualized solid organ contours are normal in size. No suspicious bony lesions. Colon: There is adequate air-contrast opacification from the rectum to the cecum. Redundant sigmoid , proximal left and transverse colon noted. No strictures, ulcers, polyps, or masses are seen. Sequestered barium contrast material in short redundant loops of colon in the proximal transverse and proximal left colon and sigmoid colon limits sensitivity of study for pathology in the segments of colon. Haustral folds are normal in thickness throughout. No diverticula. IMPRESSION: 1. Redundant loops identified in the sigmoid, proximal left and transverse colon. Sequestered barium contrast material in redundant loops limits sensitivity of study for pathology in the segments of colon. 2. No mass, polyp or stricture identified in the well visualized portions of the colon. Dictated by: Lydia Hood MD, PhD on 05/31/2020 at 10:47 Approved by: Lydia Hood MD, PhD on 05/31/2020 at 10:52
== END ==
PROVIDERS: PCP Nurse Practitioner Family; Referring Provider Specialist; Visit Provider Specialist
DX: Z12.11 Encounter for screening for malignant neoplasm of colon (principal); Z98.890 Other specified postprocedural states
CPT/HCPCS: 74280

== ENCOUNTER → 2020-10-22 07:38 | Outpatient (CLI) | payer OTHER, SELFPAY ==
[2020-10-22 08:39] LABS: Hematocrit 39.1 % (36-46); Hemoglobin 12.9 g/dL (12.0-16.0); Mean Corpuscular Hemoglobin 29.8 PG (26-34); Mean Corpuscular Volume 90.4 fL (80-100); Platelet Count 203 X10^3/uL (150-400); Red Blood Cell Count 4.33 X10^6/uL (4.0-5.2); Red Cell Distribution Width 12.8 % (11.6-14.8); White Blood Cell Count 4.8 X10^3/uL (4.5-11.0)
[2020-10-22 09:06] LABS: Alanine Aminotransferase 19 IU/L (<35); Albumin 3.8 g/dL (3.5-5.0); Albumin Globulin Ratio 1.4 (1.0-2.8); Alkaline Phosphatase 61 U/L (38-126); Aspartate Aminotransferase 35 IU/L (14-36); BUN Creatinine Ratio 17.6 (6-22); Blood Urea Nitrogen 16 mg/dL (7-17); Calcium 9.4 mg/dL (8.4-10.2); Carbon Dioxide 31 mmol/L (22-32); Chloride 105 mmol/L (98-107); Cholesterol 208 mg/dL (140-199); Estimated Glomerular Filt Rate > 60.0 mL/min (>60); Globulin 2.8 g/dL (1.7-4.1); Glucose 93 mg/dL (80-110); HDL Cholesterol 58 mg/dL (40-60); HEMOLYSIS < 15 (0-50); LDL Cholesterol Calculated 131 mg/dL (<100); Potassium 4.3 mmol/L (3.4-5.1); Sodium 138 mmol/L (137-145); Total Protein 6.6 g/dL (6.3-8.2); Triglycerides 97 mg/dL (35-150)
== END ==
PROVIDERS: PCP Nurse Practitioner Family; Referring Provider Nurse Practitioner Family; Visit Provider Nurse Practitioner Family
DX: Z00.00 Encounter for general adult medical examination without abnormal findings (principal); Z13.6 Encounter for screening for cardiovascular disorders
CPT/HCPCS: 36415; 80053; 80061; 85027

== ENCOUNTER → 2020-12-27 17:51 | Outpatient (CLI) | payer OTHER, SELFPAY ==
--- NOTE | 2020-12-27 17:52 | DI.MG.S_ITS ---
BILATERAL DIGITAL SCREENING MAMMOGRAM 3D/2D WITH CAD: 12/27/2020 CLINICAL: Routine screening. Comparison is made to exams dated: 07/28/2019 mammogram, 08/13/2018 mammogram, and 07/27/2017 mammogram - [facility]. The tissue of both breasts is heterogeneously dense. This may lower the sensitivity of mammography. Current study was also evaluated with a Computer Aided Detection (CAD) system. No significant masses, calcifications, or other findings are seen in either breast. There has been no significant interval change. IMPRESSION: NEGATIVE There is no mammographic evidence of malignancy. A 1 year screening mammogram is recommended. This exam was interpreted at Station ID: [id number]. NOTE: For mammograms, a report in lay terms will be sent to the patient. Approximately 15% of breast malignancies will not be visualized mammographically. In the management of a palpable breast mass, a negative mammogram must not discourage biopsy of a clinically suspicious lesion. Electronically Signed By: Zach leonard/tommie:12/28/2020 08:00:05 letter sent: Normal Exam ACR BI-RADS Category 1: Negative 3341F
== END ==
PROVIDERS: PCP Nurse Practitioner Family; Referring Provider Nurse Practitioner Family; Visit Provider Nurse Practitioner Family
DX: Z12.31 Encounter for screening mammogram for malignant neoplasm of breast (principal)
CPT/HCPCS: 77063; 77067

== ENCOUNTER → 2022-01-09 15:35 | Outpatient (CLI) | payer OTHER, SELFPAY ==
--- NOTE | 2022-01-09 15:36 | DI.US.S_ITS ---
PROCEDURE: US ABDOMEN LIMITED INDICATIONS: EVALUATE ABDOMINAL WALL; POSSIBLE HERNIA TECHNIQUE: Real-time focused scanning was performed of the abdomen, with image documentation. COMPARISON: None. FINDINGS: No lower abdominal ventral hernia or other ventral wall abnormalities. IMPRESSION: No lower abdominal ventral wall hernia or other ventral wall abnormalities. Dictated by: Andrez Ivey [facility] Interpreted: Vicente Rodriguez MD on 01/09/2022 at 16:02 Transcribed by: KOLTON on 01/09/2022 at 16:02 Approved by: Vicente Rodriguez M.D. on 01/10/2022 at 9:41
--- NOTE | 2022-01-09 15:37 | DI.MG.S_ITS ---
BILATERAL DIGITAL SCREENING MAMMOGRAM 3D/2D WITH CAD: 01/09/2022 CLINICAL: Routine screening. Comparison is made to exams dated: 12/27/2020 mammogram, 07/28/2019 mammogram, and 08/13/2018 mammogram - . Both breasts are heterogeneously dense, which may obscure small masses (category c / 51-75% glandular tissue). Current study was also evaluated with a Computer Aided Detection (CAD) system. There is an irregular high density asymmetry in the right breast at 12 o'clock middle depth. No other significant masses, calcifications, or other findings are seen in either breast. IMPRESSION: INCOMPLETE: NEEDS ADDITIONAL IMAGING EVALUATION The irregular high density asymmetry in the right breast is indeterminate. Additional views with possible ultrasound are recommended. Based on the Tyrer Cuzick model (a risk assessment model) the patient's lifetime risk is 12.1% and her 10 year risk is 5.5%. According to the ACR, ACS, and NCCN guidelines, an annual breast MRI exam along with mammogram is recommended if the patient's lifetime risk is 20% or greater. This exam was interpreted at Station ID: [id number]. NOTE: For mammograms, a report in lay terms will be sent to the patient. Approximately 15% of breast malignancies will not be visualized mammographically. In the management of a palpable breast mass, a negative mammogram must not discourage biopsy of a clinically suspicious lesion. Electronically Signed By: Yeimi solorio/tommie:01/10/2022 09:39:50 letter sent: Additional Imaging Needed ACR BI-RADS Category 0: Incomplete 3340F
== END ==
PROVIDERS: PCP Registered Nurse Diabetes Educator; Referring Provider Registered Nurse Diabetes Educator; Visit Provider Registered Nurse Diabetes Educator
DX: R10.9 Unspecified abdominal pain (principal); Z12.31 Encounter for screening mammogram for malignant neoplasm of breast
CPT/HCPCS: 76705; 77063; 77067

== ENCOUNTER → 2022-02-14 13:41 | Outpatient (CLI) | payer OTHER, SELFPAY ==
--- NOTE | 2022-02-14 13:43 | DI.US.S_ITS ---
LIMITED ULTRASOUND OF RIGHT BREAST: 02/14/2022 CLINICAL: Patient returns today to evaluate an asymmetry in the right breast. Comparison is made to exams dated: 02/14/2022 mammogram, 01/09/2022 mammogram, 12/27/2020 mammogram, 07/28/2019 mammogram, 07/27/2017 mammogram, and 08/13/2018 mammogram - [facility]. Real-time ultrasound of the right breast 12 o'clock region was performed. Jason scale images of the real-time examination were reviewed. No significant abnormalities were seen sonographically in the right breast. No mass or cyst. IMPRESSION: NEGATIVE There is no sonographic evidence of malignancy. A 1 year screening mammogram is recommended. Exam findings were conveyed to the patient. This exam was interpreted at Station ID: [id number]. Electronically Signed By: Darrel Marin M.D. slc/:02/14/2022 14:19:15 letter sent: Normal Exam Ultrasound BI-RADS: 1 Negative
--- NOTE | 2022-02-14 13:43 | DI.MG.S_ITS ---
UNILATERAL RIGHT DIGITAL DIAGNOSTIC MAMMOGRAM 3D/2D WITH ADDITIONAL VIEWS: 02/14/2022 CLINICAL: Additional evaluation requested from prior study. Comparison is made to exams dated: 01/09/2022 mammogram, 12/27/2020 mammogram, 07/28/2019 mammogram, and 08/13/2018 mammogram - [facility]. The right breast is heterogeneously dense, which may obscure small masses (category c / 51-75% glandular tissue). There is an asymmetry in the right breast at 12 o'clock middle depth. No other significant masses or calcifications are seen in the breast. IMPRESSION: INCOMPLETE: NEEDS ADDITIONAL IMAGING EVALUATION The asymmetry in the right breast resembles fibroglandular tissue and is indeterminate. A targeted ultrasound is recommended and will immediately follow. Based on the Tyrer Cuzick model (a risk assessment model) the patient's lifetime risk is 12.1% and her 10 year risk is 5.5%. According to the ACR, ACS, and NCCN guidelines, an annual breast MRI exam along with mammogram is recommended if the patient's lifetime risk is 20% or greater. This exam was interpreted at Station ID: [id number]. NOTE: For mammograms, a report in lay terms will be sent to the patient. Approximately 15% of breast malignancies will not be visualized mammographically. In the management of a palpable breast mass, a negative mammogram must not discourage biopsy of a clinically suspicious lesion. Electronically Signed By: Darrel Marin M.D. slc/:02/14/2022 14:06:22 ACR BI-RADS Category 0: Incomplete 3340F
== END ==
PROVIDERS: PCP Registered Nurse Diabetes Educator; Referring Provider Registered Nurse Diabetes Educator; Visit Provider Registered Nurse Diabetes Educator
DX: R92.8 Other abnormal and inconclusive findings on diagnostic imaging of breast (principal)
CPT/HCPCS: 76642; 77065; G0279

== ENCOUNTER → 2023-02-03 10:17 | Outpatient (CLI) | payer OTHER, SELFPAY ==
--- NOTE | 2023-02-03 | DI.MG.S_ITS ---
BILATERAL DIGITAL SCREENING MAMMOGRAM 3D/2D WITH CAD: 02/03/2023 CLINICAL: Routine screening. Comparison is made to exams dated: 02/14/2022 mammogram, 01/09/2022 mammogram, 12/27/2020 mammogram, and 07/28/2019 mammogram - [facility]. Both breasts are heterogeneously dense, which may obscure small masses (category c / 51-75% glandular tissue). Current study was also evaluated with a Computer Aided Detection (CAD) system. No significant masses, calcifications, or other findings are seen in either breast. There has been no significant interval change. IMPRESSION: NEGATIVE There is no mammographic evidence of malignancy. A 1 year screening mammogram is recommended. Based on the Tyrer Cuzick model (a risk assessment model) the patient's lifetime risk is 11.7% and her 10 year risk is 5.5%. According to the ACR, ACS, and NCCN guidelines, an annual breast MRI exam along with mammogram is recommended if the patient's lifetime risk is 20% or greater. This exam was interpreted at Station ID: [id number]. NOTE: For mammograms, a report in lay terms will be sent to the patient. Approximately 15% of breast malignancies will not be visualized mammographically. In the management of a palpable breast mass, a negative mammogram must not discourage biopsy of a clinically suspicious lesion. Electronically Signed By: Saroj ramsay/tommie:02/05/2023 10:24:20 letter sent: Normal Exam ACR BI-RADS Category 1: Negative 3341F
== END ==
PROVIDERS: PCP Registered Nurse Diabetes Educator; Referring Provider Student in an Organized Health Care Education/Training Program; Visit Provider Student in an Organized Health Care Education/Training Program
DX: Z12.31 Encounter for screening mammogram for malignant neoplasm of breast (principal)
CPT/HCPCS: 77063; 77067

== ENCOUNTER 2023-03-13 18:02 | Emergency (ER) | payer OTHER, SELFPAY ==
[2023-03-13] VITALS (11 sets, daily range): BP systolic 91–140; BP diastolic 52–64; PULSE 62–85; RESP 13–17; TEMP 39.3; O2SAT 94–98; BMI 26.6
--- NOTE | 2023-03-13 18:32 | DI.RAD.S_ITS ---
PROCEDURE: XR CHEST 1V INDICATIONS: suspected sepsis TECHNIQUE: One view of the chest was acquired. COMPARISON: None. FINDINGS: Surgical changes and devices: None. Lungs and pleura: Lungs are clear. No pleural effusions or pneumothorax. Mediastinum: Mediastinal contours appear normal. Heart size is normal. Bones and chest wall: No suspicious bony lesions. Overlying soft tissues appear unremarkable. IMPRESSION: No acute cardiopulmonary abnormality is seen. Dictated by: Isabella Bella M.D. on 03/13/2023 at 19:46 Approved by: Isabella Bella M.D. on 03/13/2023 at 19:47
[2023-03-13] MEDS: ACETAMINOPHEN 325 MG TABLET 650 MG PO (18:55)
[2023-03-13] MEDS: SODIUM CHLORIDE 0.9% 1,000 ML 1000 ML IV ×2 (18:56→20:18)
[2023-03-13 19:09] LABS: Add Manual Diff / Slide Review NO; Basophils Absolute Auto 0 /uL (0-100); Basophils Percent Auto 1.2 % (0-2); Eosinophils Absolute Auto 0 /uL (0-450); Eosinophils Percent Auto 0.2 % (2-4); Hematocrit 34.2 % (36-46); Hemoglobin 11.5 g/dL (12.0-16.0); Lymphocytes Absolute Auto 900 /uL (1100-4500); Lymphocytes Percent Auto 33.4 % (25-40); Mean Corpuscular HGB Conc 33.7 % (30-36); Mean Corpuscular Hemoglobin 29.2 PG (26-34); Mean Corpuscular Volume 86.6 fL (80-100); Monocytes Absolute Auto 200 /uL (0-900); Monocytes Percent Auto 6.3 % (3-14); Neutrophils Absolute Auto 1700 /uL (1500-7000); Neutrophils Percent Auto 58.9 % (50-75); Platelet Count 103 X10^3/uL (150-400); Red Blood Cell Count 3.94 X10^6/uL (4.0-5.2); Red Cell Distribution Width 12.7 % (11.6-14.8); White Blood Cell Count 2.8 X10^3/uL (4.5-11.0)
[2023-03-13 19:12] LABS: Bacteria Urine Few (2-10); RBC Urine 0-1/HPF (0-5/HPF); Renal Epithelial Cells Urine 1-5/HPF (0-1/HPF); Squamous Epithelial Cell Urine 5-10 /HPF (0-5/HPF); Transitional Epi Cells Urine 5-10/HPF (0-5/HPF); WBC Urine 30-100/HPF (0-5/HPF); White Blood Cell Casts Urine 5-10/LPF
[2023-03-13 19:13] LABS: Culture Indicated Urine Specimen Cultured
[2023-03-13 19:21] LABS: INR 1.1 (0.9-1.3); Prothrombin Time 12.9 SECONDS (9.4-12.5)
[2023-03-13 19:23] LABS: PTT Partial Thromboplastin Tim 32 SECONDS (25.1-36.5)
[2023-03-13 19:29] LABS: Alanine Aminotransferase 357 IU/L (<35); Albumin 3.5 g/dL (3.5-5.0); Albumin Globulin Ratio 1.1 (1.0-2.8); Alkaline Phosphatase 260 U/L (38-126); Aspartate Aminotransferase 358 IU/L (14-36); BUN Creatinine Ratio 19.5 (6-22); Bilirubin Total 1.3 mg/dL (0.2-1.3); Blood Urea Nitrogen 16 mg/dL (7-17); Calcium 8.8 mg/dL (8.4-10.2); Carbon Dioxide 27 mmol/L (22-32); Chloride 99 mmol/L (98-107); Estimated Glomerular Filt Rate > 60 mL/min (>60); Globulin 3.2 g/dL (1.7-4.1); Glucose 109 mg/dL (80-110); HEMOLYSIS < 15 (0-50); Lipase 50 U/L (23-300); Potassium 4.1 mmol/L (3.4-5.1); Sodium 130 mmol/L (137-145); Total Protein 6.7 g/dL (6.3-8.2)
[2023-03-13 19:30] LABS: Lactate (Lactic Acid) 0.8 mmol/L (0.7-2.1)
[2023-03-13 19:46] LABS: Procalcitonin 0.28 ng/mL (<0.5)
--- NOTE | 2023-03-13 19:53 | ED.GENADULT ---
HPI - General Adult General Chief complaint: Fever Stated complaint: fever Time Seen by Provider: 03/13/23 18:40 Source: patient Mode of arrival: Ambulatory Limitations: no limitations History of Present Illness HPI narrative: Patient is a 62-year-old female who is here for evaluation of a fever and dark-colored urine. She states that several days ago she was seen at an outside clinic for similar symptoms. She was tested for COVID and the flu. At that time she was also having neck discomfort. She would x-rays of her neck. Was told that she had ?collapsed discs? in her neck. Was started on Flexeril and meloxicam. The next day she had what she thought was a reaction to those medicines that resulted in a syncopal episode. She has not having any abdominal pain. No sore throat. No headache. No skin rashes. No change in bowel habits. Related Data Home Medications Medication Instructions Recorded Confirmed [MULTIVITAMIN] 1 tab PO QDAY ##0 08/05/10 03/07/22 [VITAMIN C] 500 mg PO QDAY ##0 08/05/10 03/07/22 [VITAMIN D] 1 tab PO QDAY ##0 08/21/16 03/07/22 Previous Rx's Medication Instructions Recorded EPINEPHRINE (ADRENACLICK) 0.3 mg SUBCUT ONCE #2 ea 09/04/17 epinephrine 0.3 mg/0.3 mL 0.3 mg (0.3 mL) IM ONCE #2 ea 10/28/20 injection, auto-injector bupropion HCl 100 mg tablet,12 hr 100 mg PO Q DAY #90 tabs 12/27/21 sustained-release (Wellbutrin SR) sertraline 25 mg tablet 25 mg PO DAILY #90 tabs 12/27/21 sertraline 50 mg tablet See Rx Instructions .Route 12/27/21 .COMPLEX #90 tabs permethrin 5 % topical cream 1 applic topical ONCE #60 grams 03/07/22 prednisone 50 mg tablet 50 mg PO DAILY #5 tabs 03/07/22 cephalexin 500 mg capsule 500 mg PO BID 7 days #14 caps 03/13/23 cephalexin 500 mg capsule 500 mg PO BID 7 days #14 caps 03/13/23 cephalexin 500 mg capsule 500 mg PO BID 7 days #14 caps 03/13/23 Allergies Allergy/AdvReac Type Severity Reaction Status Date / Time Penicillins [PENICILLINS] Allergy Severe rash Verified 03/13/23 18:28 venom-wasp [WASP VENOM] Allergy Severe FACIAL Verified 03/13/23 18:28 SWELLING & ANAPHYLACTIC SHOCK codeine [CODEINE] AdvReac Severe n/v Verified 03/13/23 18:28 Sulfa (Sulfonamide AdvReac Severe passed out Verified 03/13/23 18:28 Antibiotics) due to low [SULFA (SULFONAMIDE bp ANTIBIOTICS)] fentanyl AdvReac Unknown nausea, Verified 03/13/23 18:28 vomiting Review of Systems Constitutional Constitutional: Reports system reviewed and no additional complaints, except as documented Cardiovascular Cardiovascular: Reports system reviewed and no additional complaints, except as documented Respiratory Respiratory: Reports system reviewed and no additional complaints, except as documented Gastrointestinal Gastrointestinal: Reports system reviewed and no additional complaints, except as documented Genitourinary Genitourinary: Reports system reviewed and no additional complaints, except as documented Integumentary/Breasts Skin/Breast: Reports system reviewed and no additional complaints, except as documented Neurologic Neurologic: Reports system reviewed and no additional complaints, except as documented Hematologic/Lymphatic On Anticoagulants: No Patient History Medical History Mixed hyperlipidemia Diverticulosis (08/2019) Allergic rhinitis (Unknown) Low back pain (~1999) Depression (Unknown) Raynaud disease (Unknown) Surgical History Hx of sinus surgery (Unknown) Status post delivery Status post hysterectomy with oophorectomy Family History Father Hypertension Mother Diabetes mellitus Grandfather No problems noted. Social History household members: family Smoking Status: Former smoker Tobacco: How many years used: 4 second hand exposure: No alcohol intake: current substance use type: does not use Smoking Status: Former smoker alcohol intake frequency: holidays/special occasions only Substance Use Type: does not use Exam Initial Vital Signs Initial Vital Signs: Vital Signs Temperature 102.7 F H 03/13/23 18:22 Pulse Rate 85 03/13/23 18:22 Respiratory Rate 17 03/13/23 18:22 Blood Pressure 131/64 03/13/23 18:22 Pulse Oximetry 98 03/13/23 18:22 Oxygen Delivery Method Room Air 03/13/23 18:22 Const General: cooperative, comfortable and No ill appearing Resp Effort & Inspection: normal respiratory effort Auscultation: clear to auscultation bilaterally Cardio Rate: regular rate Rhythm: regular rhythm GI Inspection: normal to inspection and non-distended Palpation: soft, No firm and No tender Back/Spine/Pelvis Back: No CVA tenderness Neuro General: patient alert, patient awake and moves all extremities Extrem General: normal to inspection and capillary refill normal Scores GCS Lisette coma scale eye opening: Spontaneous [place] coma scale verbal response: Orientated [place] coma scale motor response: Obey commands [place] coma scale total score: 15 Course Orders Ordered: ED Orders 03/13/23 18:30 Urine Culture Stat Urine Microscopic Stat 03/13/23 18:32 XR chest 1V Stat EKG-12 Lead Stat RT Consult Eval and Treat NOW 03/13/23 18:57 Complete Blood Count AUTO DIFF Stat Comprehensive Metabolic Panel Stat Lactate (Lactic Acid) Stat Lipase Stat PTT Partial Thromboplastin Estuardo Stat Procalcitonin Stat Prothrombin Time INR Stat 03/13/23 19:00 Blood Culture Stat 03/13/23 20:30 Covid-19 + FLU A/B + RSV - PCR Stat 03/13/23 21:35 Urinalysis and Microscopic Stat Discontinued Medications Acetaminophen (Acetaminophen 325 Mg Tablet) 650 mg PO NOW ONE Stop: 03/13/23 18:41 Last Admin: 03/13/23 18:55 Dose: 650 mg Documented By: TAN Sodium Chloride (Normal Saline 0.9%) 1,000 mls @ 1,000 mls/hr IV BOLUS ONE Stop: 03/13/23 19:31 Last Infusion: 03/13/23 20:18 Dose: Infused Documented By: Admin: 03/13/23 18:56 Dose: 1,000 mls/hr Documented By: TAN Sodium Chloride (Normal Saline 0.9%) 1,000 mls @ 1,000 mls/hr IV BOLUS ONE Stop: 03/13/23 20:55 Last Infusion: 03/13/23 21:31 Dose: Infused Documented By: Admin: 03/13/23 20:18 Dose: 1,000 mls/hr Documented By: MAGAN Ceftriaxone Sodium 1,000 mg/ (Sodium Chloride) 100 mls @ 200 mls/hr IV NOW ONE Stop: 03/13/23 22:19 Last Infusion: 03/13/23 23:12 Dose: Infused Documented By: Admin: 03/13/23 22:28 Dose: 200 mls/hr Documented By: MAGAN Ondansetron HCl (Ondansetron 4 Mg/2 Ml Inj) 4 mg IV NOW PRN PRN Reason: Nausea And Vomiting Ondansetron HCl (Ondansetron 4 Mg Odt) 4 mg SL NOW PRN PRN Reason: Nausea And Vomiting Vital Signs Vital signs: Vital Signs - 8 hr 03/13/23 18:22 03/13/23 19:01 03/13/23 19:03 Temperature 102.7 F H Pulse Rate 85 76 75 Respiratory Rate 17 17 Blood Pressure 131/64 Pulse Oximetry 98 96 94 Oxygen Delivery Method Room Air 03/13/23 19:03 03/13/23 19:30 03/13/23 19:31 Temperature Pulse Rate 72 72 Respiratory Rate 13 14 Blood Pressure 140/57 L Pulse Oximetry 97 98 Oxygen Delivery Method 03/13/23 19:31 03/13/23 20:00 03/13/23 20:00 Temperature Pulse Rate 71 Respiratory Rate 13 Blood Pressure 108/52 L 109/54 L Pulse Oximetry 96 Oxygen Delivery Method 03/13/23 20:30 03/13/23 20:30 03/13/23 21:00 Temperature Pulse Rate 69 Respiratory Rate 17 Blood Pressure 112/53 L 102/54 L Pulse Oximetry 96 Oxygen Delivery Method 03/13/23 21:00 03/13/23 22:31 03/13/23 22:41 Temperature Pulse Rate 69 64 62 Respiratory Rate 14 Blood Pressure Pulse Oximetry 95 95 95 Oxygen Delivery Method 03/13/23 22:41 03/13/23 23:00 03/13/23 23:00 Temperature Pulse Rate 65 Respiratory Rate Blood Pressure 91/54 L 101/57 L Pulse Oximetry 96 Oxygen Delivery Method Medical Decision Making Lab Data Lab results reviewed: Yes I reviewed the patient's lab results. 03/13/23 18:57 03/13/23 18:57 Labs: Lab Results 03/13/23 03/13/23 03/13/23 Range/Units 18:30 18:57 20:30 WBC 2.8 L (4.5-11.0) X10^3/uL RBC 3.94 L (4.0-5.2) X10^6/uL Hgb 11.5 L (12.0-16.0) g/dL Hct 34.2 L (36-46) % MCV 86.6 (80-100) fL MCH 29.2 (26-34) PG MCHC 33.7 (30-36) % RDW 12.7 (11.6-14.8) % Plt Count 103 L (150-400) X10^3/uL Neut % (Auto) 58.9 (50-75) % Lymph % (Auto) 33.4 (25-40) % [place] % (Auto) 6.3 (3-14) % Eos % (Auto) 0.2 L (2-4) % Baso % (Auto) 1.2 (0-2) % Neut # (Auto) 1700 (5830-0154) /uL Lymph # (Auto) 900 L (8678-2741) /uL [place] # (Auto) 200 (0-900) /uL Eos # (Auto) 0 (0-450) /uL Baso # (Auto) 0 (0-100) /uL PT 12.9 H (9.4-12.5) SECONDS INR 1.1 (0.9-1.3) APTT 32 (25.1-36.5) SECONDS Sodium 130 L (137-145) mmol/L Potassium 4.1 (3.4-5.1) mmol/L Chloride 99 (98-107) mmol/L Carbon Dioxide 27 (22-32) mmol/L BUN 16 (7-17) mg/dL Creatinine 0.82 (0.52-1.04) mg/dL Estimated GFR > 60 (>60) mL/min BUN/Creatinine Ratio 19.5 (6-22) Glucose 109 (80-110) mg/dL Lactate 0.8 (0.7-2.1) mmol/L Calcium 8.8 (8.4-10.2) mg/dL Total Bilirubin 1.3 (0.2-1.3) mg/dL AST 358 H (14-36) IU/L ALT 357 H (<35) IU/L Alkaline Phosphatase 260 H (38-126) U/L Total Protein 6.7 (6.3-8.2) g/dL Albumin 3.5 (3.5-5.0) g/dL Globulin 3.2 (1.7-4.1) g/dL Albumin/Globulin Ratio 1.1 (1.0-2.8) Lipase 50 (23-300) U/L Procalcitonin 0.28 (<0.5) ng/mL Urine Color Urine Appearance Urine pH (4.5-8.0) Ur Specific [place] (1.000-1.035) Urine Protein (Negative) Urine Glucose (UA) (Negative) g/dL Urine Ketones (NEGATIVE) Urine Occult Blood (Negative) Urine Nitrate (Negative) Urine Bilirubin (NEGATIVE) Urine Urobilinogen (0.2) E.U./dL Ur Leukocyte Esterase (NEGATIVE) Urine RBC 0-1/hpf (0-5/HPF) Urine WBC 30-100/hpf H (0-5/HPF) Ur Squamous Epith Cells 5-10 /hpf H (0-5/HPF) Ur Transition Epith Cell 5-10/hpf H (0-5/HPF) Ur Renal Epithelial Cell 1-5/hpf H (0-1/HPF) Urine Bacteria Few (2-10) H (None) WBC Casts 5-10/lpf H (None) Ur Culture Indicated? Specimen cultured SARS-CoV-2 (PCR) Negative (Negative) Influenza A (RT-PCR) Flu a negative (NEGATIVE) Influenza B (RT-PCR) Flu b negative (NEGATIVE) RSV (PCR) Negative (Negative) 03/13/23 Range/Units 21:35 WBC (4.5-11.0) X10^3/uL RBC (4.0-5.2) X10^6/uL Hgb (12.0-16.0) g/dL Hct (36-46) % MCV (80-100) fL MCH (26-34) PG MCHC (30-36) % RDW (11.6-14.8) % Plt Count (150-400) X10^3/uL Neut % (Auto) (50-75) % Lymph % (Auto) (25-40) % [place] % (Auto) (3-14) % Eos % (Auto) (2-4) % Baso % (Auto) (0-2) % Neut # (Auto) (8215-4004) /uL Lymph # (Auto) (3462-1339) /uL [place] # (Auto) (0-900) /uL Eos # (Auto) (0-450) /uL Baso # (Auto) (0-100) /uL PT (9.4-12.5) SECONDS INR (0.9-1.3) APTT (25.1-36.5) SECONDS Sodium (137-145) mmol/L Potassium (3.4-5.1) mmol/L Chloride (98-107) mmol/L Carbon Dioxide (22-32) mmol/L BUN (7-17) mg/dL Creatinine (0.52-1.04) mg/dL Estimated GFR (>60) mL/min BUN/Creatinine Ratio (6-22) Glucose (80-110) mg/dL Lactate (0.7-2.1) mmol/L Calcium (8.4-10.2) mg/dL Total Bilirubin (0.2-1.3) mg/dL AST (14-36) IU/L ALT (<35) IU/L Alkaline Phosphatase (38-126) U/L Total Protein (6.3-8.2) g/dL Albumin (3.5-5.0) g/dL Globulin (1.7-4.1) g/dL Albumin/Globulin Ratio (1.0-2.8) Lipase (23-300) U/L Procalcitonin (<0.5) ng/mL Urine Color Yellow Urine Appearance Clear Urine pH 8.0 (4.5-8.0) Ur Specific [place] 1.010 (1.000-1.035) Urine Protein Negative (Negative) Urine Glucose (UA) Negative (Negative) g/dL Urine Ketones Negative (NEGATIVE) Urine Occult Blood Negative (Negative) Urine Nitrate Negative (Negative) Urine Bilirubin Negative (NEGATIVE) Urine Urobilinogen 1.0 (0.2) E.U./dL Ur Leukocyte Esterase 1+ H (NEGATIVE) Urine RBC 0-1/hpf (0-5/HPF) Urine WBC 5-10/hpf H (0-5/HPF) Ur Squamous Epith Cells 1-5 /hpf (0-5/HPF) Ur Transition Epith Cell (0-5/HPF) Ur Renal Epithelial Cell (0-1/HPF) Urine Bacteria Few (2-10) H (None) WBC Casts 0-1/lpf (None) Ur Culture Indicated? Specimen cultured SARS-CoV-2 (PCR) (Negative) Influenza A (RT-PCR) (NEGATIVE) Influenza B (RT-PCR) (NEGATIVE) RSV (PCR) (Negative) Urine Dip Bedside Urine Glucose Negative Bedside Urine Bilirubin - Negative Bedside Urine Ketone +/- 5 Urine Specific [place] 1.000 Bedside Urine Occult Blood - Negative Bedside Urine pH 9.0 Bedside Urine Protein + 30 Bedside Urine Urobilinogen - Negative Bedside Urine Nitrite - Negative Bedside Urine Leukocytes +++ 500 Esterase Point of care testing: Urine Dip Bedside Urine Glucose Negative Bedside Urine Bilirubin - Negative Bedside Urine Ketone +/- 5 Urine Specific [place] 1.000 Bedside Urine Occult Blood - Negative Bedside Urine pH 9.0 Bedside Urine Protein + 30 Bedside Urine Urobilinogen - Negative Bedside Urine Nitrite - Negative Bedside Urine Leukocytes +++ 500 Esterase Imaging Data Chest x-ray: Radiologist's Impression: PROCEDURE: XR CHEST 1V INDICATIONS: suspected sepsis TECHNIQUE: One view of the chest was acquired. COMPARISON: None. FINDINGS: Surgical changes and devices: None. Lungs and pleura: Lungs are clear. No pleural effusions or pneumothorax. Mediastinum: Mediastinal contours appear normal. Heart size is normal. Bones and chest wall: No suspicious bony lesions. Overlying soft tissues appear unremarkable. IMPRESSION: No acute cardiopulmonary abnormality is seen. ECG Data Attestation: I personally reviewed and interpreted this ECG as follows: Interpretation: Sinus rhythm Ventricular rate is 73 Normal axis Normal QRS Normal QTC No ST T wave changes MDM Narrative Medical decision making narrative: Initial urine sample that the patient gave had quite a few epi cells which was concerning about a contaminated sample. She does not have necessarily overt dysuria although does report dark-colored urine. They repeat urine sample appears to be a much wool cleaner sample and does have bacteria and white blood cells present. She has no CVA tenderness. Low suspicion for pyelo. She does have elevation in her LFTs but she has no right upper quadrant pain. She has no skin rashes. No other abdominal pain. No chest pain or shortness of breath. COVID/flu is negative. Low suspicion for meningitis. Although not 100% definitive for urinary tract infection it is the only potential source that I have. Because of this will start on antibiotics. Was given 1st dose here in the emergency department a prescription was sent to the pharmacy of her choice. No indication for admission to the hospital she is tolerating oral intake. She was given return precautions. She expressed understanding and agreement. Discharge Plan Departure Patient Disposition: Home Clinical Impression: UTI (urinary tract infection) Instructions: DI for Urinary Tract Infection (UTI) Activity Restrictions/Additional Instructions: A prescription for antibiotics was sent to [facility] in [place]. Please pick them up tomorrow and start taking it as directed. I did inadvertently said the same prescription to [facility]. Unfortunately wants it has been transmitted I can not discontinue this medicine. If you happened receive a call from [facility] you can tell them that your prescription was picked up elsewhere. Return to the emergency department for new symptoms. Prescriptions: New cephalexin 500 mg capsule 500 mg PO BID 7 Days Qty: 14 0RF cephalexin 500 mg capsule 500 mg PO BID 7 Days Qty: 14 0RF cephalexin 500 mg capsule 500 mg PO BID 7 Days Qty: 14 0RF No Action EPINEPHRINE (ADRENACLICK) 0.3 mg SUBCUT ONCE Qty: 2 1RF prednisone 50 mg tablet 50 mg PO DAILY Qty: 5 0RF permethrin 5 % cream 1 applic topical ONCE Qty: 60 0RF Rx Instructions: apply to the neck and hairline and leave on for 8 to 14 hrs before washing off [MULTIVITAMIN] 1 tab PO QDAY Qty: 0 [VITAMIN C] 500 mg PO QDAY Qty: 0 [VITAMIN D] 1 tab PO QDAY Qty: 0 bupropion HCl [Wellbutrin SR] 100 mg tablet sustained-release 12 hr 100 mg PO Q DAY Qty: 90 3RF sertraline 25 mg tablet 25 mg PO DAILY Qty: 90 3RF sertraline 50 mg tablet See Rx Instructions .ROUTE .COMPLEX Qty: 90 3RF Dose Instruction: TAKE 1 TABLET BY MOUTH EVERY DAY TAKE A TOTAL OF 75MG DAILY/ PT WILL NEED TO EST CARE WITH NEW PCP BEFORE NEXT FILL 08/22/21 Rx Instructions: TAKE 1 TABLET BY MOUTH EVERY DAY TAKE A TOTAL OF 75MG DAILY epinephrine 0.3 mg/0.3 mL auto-injector 0.3 mg IM ONCE Qty: 2 0RF Rx Instructions: as a single dose Referrals: Reza Rosa ARNP [Primary Care Provider] - Stand Alone Forms: Patient Portal/API
[2023-03-13 21:42] LABS: Appearance Urine UA CLEAR; Bilirubin Urine UA NEGATIVE (NEGATIVE); Color Urine UA YELLOW; Glucose Urine UA NEGATIVE (Negative); Ketones Urine UA NEGATIVE (NEGATIVE); Leukocyte Esterase Urine UA 1+ (NEGATIVE); Nitrite Urine UA NEGATIVE (Negative); Occult Blood Urine UA NEGATIVE (Negative); Protein Urine UA NEGATIVE (Negative)
[2023-03-13 21:51] LABS: Bacteria Urine Few (2-10); Culture Indicated Urine Specimen Cultured; RBC Urine 0-1/HPF (0-5/HPF); Squamous Epithelial Cell Urine 1-5 /HPF (0-5/HPF); WBC Urine 5-10/HPF (0-5/HPF); White Blood Cell Casts Urine 0-1/LPF
[2023-03-13 22:11] LABS: Influenza A - CEPHEID Flu A NEGATIVE (NEGATIVE); Influenza B - CEPHEID Flu B NEGATIVE (NEGATIVE); Respiratory Syncytial Virus Negative (Negative)
[2023-03-13 22:26] LABS: COVID-19 CEPHEID 4-PLEX PCR Negative (Negative)
[2023-03-13] MEDS: cefTRIAXone 1,000 MG in SODIUM CHLORIDE 0.9% 100 ML 200 MG IV (22:28)
== END 2023-03-13 23:13 | disposition home or self-care (01) ==
PROVIDERS: Emergency Provider Emergency Medicine; PCP Registered Nurse Diabetes Educator
DX: N39.0 Urinary tract infection, site not specified (principal); Z20.822 Contact with and (suspected) exposure to COVID-19
CPT/HCPCS: 0241U; 36415; 71045; 80053; 81001; 81003; 81015; 83605; 83690; 84145; 85025; 85610; 85730; 87040; 87077; 87086; 87186; 93005; 93010; 96365; 99284; J0696